=== PATIENT | male | born 2000 | race Caucasian/White ===

== ENCOUNTER 2021-05-03 16:02 | Emergency (ER) | payer SELFPAY ==
--- NOTE | 2021-05-03 16:17 | Event Note ---
ED Screening Note ED Screening Note: Patient is a very poor historian and difficult to assess He would not answer questions He keeps saying he has chest pain and feels like he cannot breathe He is actively vomiting When asked how long this has been going on he states at all now He refuses answer any other questions This initial assessment/diagnostic orders/clinical plan/treatment(s) is/are subject to change based on patients health status, clinical progression and re- assessment by fellow clinical providers in the ED. Further treatment and workup at subsequent clinical providers discretion. Patient/guardian urged not to elope from the ED as their condition may be serious if not clinically assessed and managed. Initial orders include: Labs, EKG, x-ray, ua, uds
[2021-05-03 16:21] VITALS: BP 122/73
--- NOTE | 2021-05-03 17:02 | XRay Report ---
XR abd series w cxr 1V INDICATION / CLINICAL INFORMATION: CP, SOB, vomiting. COMPARISON: None available. FINDINGS: SUPPORT DEVICES: None. HEART / MEDIASTINUM: No significant abnormality. LUNGS / PLEURA: Lungs are clear. Costophrenic sulci are sharp. No pneumothorax. ABDOMEN: Nonobstructive bowel gas pattern. No pneumoperitoneum. ADDITIONAL FINDINGS: No significant additional findings. IMPRESSION: 1. No acute findings. 2. Nonobstructive bowel gas pattern. Signer Name: Mlevin Rowland MD Signed: 05/03/2021 4:57 PM Workstation Name: [employer]
[2021-05-03 17:25] LABS: Basophils % (Auto) 0.3 % (0.0-1.8); Hematocrit 45.3 % (35.5-45.6); Hemoglobin 15.6 gm/dl (11.8-15.2); Lymphocytes # (Auto) 1.2 K/mm3 (1.2-5.4); Lymphocytes % (Auto) 14.8 % (13.4-35.0); Mean Corpuscular HGB Conc 35 % (32-34); Mean Corpuscular Volume 91 fl (84-94); Monocytes # (Auto) 0.2 K/mm3 (0.0-0.8); Monocytes % (Auto) 2.7 % (0.0-7.3); Platelet Count 245 K/mm3 (140-440); Red Blood Count 4.96 M/mm3 (3.65-5.03); Red Cell Distribution Width 13.9 % (13.2-15.2)
[2021-05-03 17:51] LABS: Alanine Aminotransferase 14 units/L (7-56); Albumin 4.6 g/dL (3.9-5); BUN/Creatinine Ratio 11; Blood Urea Nitrogen 9 mg/dL (9-20); Hemolysis Index 12
--- NOTE | 2021-05-04 10:26 | Electrocardiograph Report ---
[facility] Test Date: 2021-05-03 Test Time: 16:23:41 Pat Name: DAYNA MADDOX Department: Room: Gender: M Customer Engagement Manager: CHRISTA : 2000 Requested By: JUSTIN CHAVEZ Order Number: [id number] Reading MD: Rios Coleman Measurements Intervals Goessel Rate: 59 P: 40 MO: 159 QRS: 77 QRSD: 87 T: 0 QT: 396 QTc: 390 Interpretive Statements Sinus bradycardia Atrial premature complex ST elev, probable normal early repol pattern No previous ECG available for comparison Electronically Signed On 05-04-2021 10:25:58 EDT by Rios Coleman
== END 2021-05-04 08:00 ==
LOC: ED 16:02
DX: R07.9 Chest pain, unspecified (principal); Z53.21 Procedure and treatment not carried out due to patient leaving prior to being seen by health care provider
CPT/HCPCS: 36415; 74022; 80053; 80320; 83690; 84484; 85025; 93005; G0480